=== PATIENT | male | born 1940 | race African-American/Black ===

== ENCOUNTER 2022-03-19 03:23 | Observation (INO) ==
[2022-03-19] MEDS ORDERED: SODIUM CHLORIDE 0.9% 1,000 ML IV STA (03:44)
[2022-03-19 04:20] LABS: Basophils % 0.4 % (0.0-0.8); Eosinophils # 0.2 10*3/uL (0.0-0.87); Eosinophils % 2.5 % (0.00-10.9); Hematocrit 34.9 VOL% (42.0-52.0); Hemoglobin 11.3 GM/DL (14.0-18.0); Immature Granulocytes % 0.6 %; Immature Granulocytes Absolute 0.04 #; Lymphocytes # 1.9 10*3/uL (1.4-4.0); Mean Corpuscular HGB Conc 32.4 GM/DL (32-36); Mean Corpuscular Volume 69.9 FL (87-102); Mean Platelet Volume 11.2 FL (9.6-12.0); Monocytes # 0.5 10*3/uL (0.11-0.8); Monocytes % 7.8 % (1.7-12.7); Neutrophils % 60.7 % (38.7-73.9); Platelet Count 177 T/CUMM (130-400); Red Blood Count 4.99 MC/CUMM (3.8-5.5); Red Cell Distribution Width 17.6 % (9.3-17.3); White Blood Count 6.7 T/CUMM (4-12)
[2022-03-19 04:38] LABS: INR 1.1; PT Patient Result 12.1 SECS (10.1-12.1); Partial Thromboplastin Time 25.8 SECS (23.7-32.9)
[2022-03-19 04:46] LABS: Platelet Estimate Adequate
[2022-03-19 04:48] LABS: Alanine Aminotransferase < 9 U/L (16-61); Albumin 3.4 G/DL (3.4-5.0); Alkaline Phosphatase 47 U/L (45-117); Aspartate Amino Transferase 7 U/L (0-37); Bilirubin,Total < 0.39 MG/DL (0.20-1.00); Blood Urea Nitrogen 21 MG/DL (7-18); Calcium 9.3 MG/DL (8.5-10.1); Carbon Dioxide 23 MMOL/L (21-32); Chloride 112 MMOL/L (98-107); Glucose 109 MG/DL (74-106); Osmolality,Calculated 286.1 MOS/KG (273-304); Potassium 3.7 MMOL/L (3.5-5.1); Sodium 142 MMOL/L (136-145); Total Protein 6.4 G/DL (6.4-8.2)
[2022-03-19] MEDS ORDERED: ONDANSETRON 4 MG/2 ML VIAL IV PRN (06:16)
[2022-03-19 06:52] LABS: Risk Ratio 3.06; VLDL Cholesterol 21.2 MG/DL
[2022-03-19] MEDS: INSULIN LISPRO 100 UNIT/ML SUBCUT SCH ×4 (07:30→22:18)
[2022-03-19 07:59] LABS: Hematocrit 32.2 VOL% (42.0-52.0); Hemoglobin 10.1 GM/DL (14.0-18.0)
[2022-03-19] MEDS: GABAPENTIN 300 MG CAPSULE PO SCH ×2 (10:07→21:44)
[2022-03-19] MEDS: PANTOPRAZOLE 40 MG VIAL IV SCH ×2 (10:08→22:28)
[2022-03-19] MEDS: SODIUM CHLORIDE 0.9% 1,000 ML IV SCH (10:11)
[2022-03-19] MEDS: cefTRIAXone 1,000 MG in SODIUM CHLORIDE 0.9% 100 ML IV SCH (10:14)
[2022-03-19] MEDS: metroNIDAZOLE INJ 500 MG/100 ML PREMIX IV SCH ×2 (12:48→19:50)
[2022-03-19] MEDS ORDERED: DEXTROSE 50% 25 GM/50 ML SYRINGE IV ONE ×2 (13:07→13:30)
[2022-03-19] MEDS ORDERED: DEXTROSE 50% 25 GM/50 ML VIAL IV ONE (13:09)
[2022-03-19 14:23] LABS: Basophils % 0.4 % (0.0-0.8); Eosinophils # 0.1 10*3/uL (0.0-0.87); Hemoglobin 8.6 GM/DL (14.0-18.0); Immature Granulocytes % 0.5 %; Immature Granulocytes Absolute 0.03 #; Lymphocytes # 2.1 10*3/uL (1.4-4.0); Lymphocytes % 37.6 % (21.2-54.2); Mean Corpuscular HGB Conc 31.9 GM/DL (32-36); Mean Corpuscular Volume 71.4 FL (87-102); Mean Platelet Volume 11.6 FL (9.6-12.0); Monocytes # 0.4 10*3/uL (0.11-0.8); Monocytes % 6.8 % (1.7-12.7); Neutrophils % 52.7 % (38.7-73.9); Platelet Count 141 T/CUMM (130-400); Red Blood Count 3.78 MC/CUMM (3.8-5.5); Red Cell Distribution Width 18.2 % (9.3-17.3); White Blood Count 5.6 T/CUMM (4-12)
[2022-03-19] MEDS: DEXTROSE 5% NACL 0.45% 1,000 ML IV SCH (14:56)
[2022-03-19] MEDS: amLODIPine 10 MG TABLET PO SCH (21:44)
[2022-03-19] MEDS: SIMVASTATIN 10 MG TABLET PO SCH (21:44)
[2022-03-19] MEDS: rOPINIRole 1 MG TABLET PO SCH (21:44)
[2022-03-20] MEDS: metroNIDAZOLE INJ 500 MG/100 ML PREMIX IV SCH ×3 (01:48→17:20)
[2022-03-20 05:51] LABS: Basophils % 0.4 % (0.0-0.8); Eosinophils # 0.1 10*3/uL (0.0-0.87); Eosinophils % 2.1 % (0.00-10.9); Hematocrit 25.8 VOL% (42.0-52.0); Hemoglobin 8.2 GM/DL (14.0-18.0); Immature Granulocytes % 0.7 %; Immature Granulocytes Absolute 0.04 #; Lymphocytes # 1.3 10*3/uL (1.4-4.0); Lymphocytes % 23.2 % (21.2-54.2); Mean Corpuscular HGB Conc 31.8 GM/DL (32-36); Mean Corpuscular Volume 71.9 FL (87-102); Monocytes # 0.6 10*3/uL (0.11-0.8); Monocytes % 11.2 % (1.7-12.7); Neutrophils % 62.4 % (38.7-73.9); Platelet Count 126 T/CUMM (130-400); Red Blood Count 3.59 MC/CUMM (3.8-5.5); Red Cell Distribution Width 18.5 % (9.3-17.3); White Blood Count 5.7 T/CUMM (4-12)
[2022-03-20] MEDS: SODIUM CHLORIDE 0.9% 1,000 ML IV SCH (06:44)
[2022-03-20] MEDS ORDERED: SODIUM CHLORIDE 0.9% 1,000 ML IV PRN ×2 (08:12→10:36)
[2022-03-20 09:17] LABS: % Iron Saturation 44.4 % (18-50)
[2022-03-20 09:21] LABS: Alanine Aminotransferase < 9 U/L (16-61); Alkaline Phosphatase 38 U/L (45-117); Aspartate Amino Transferase 7 U/L (0-37); Bilirubin,Total < 0.39 MG/DL (0.20-1.00); Blood Urea Nitrogen 24 MG/DL (7-18); Calcium 8.7 MG/DL (8.5-10.1); Carbon Dioxide 25 MMOL/L (21-32); Chloride 113 MMOL/L (98-107); Glucose 119 MG/DL (74-106); Osmolality,Calculated 290.8 MOS/KG (273-304); Potassium 4.1 MMOL/L (3.5-5.1); Sodium 144 MMOL/L (136-145); Total Protein 5.6 G/DL (6.4-8.2)
[2022-03-20] MEDS: INSULIN LISPRO 100 UNIT/ML SUBCUT SCH ×4 (11:06→22:41)
[2022-03-20] MEDS: GABAPENTIN 300 MG CAPSULE PO SCH ×2 (11:08→22:42)
[2022-03-20] MEDS: PANTOPRAZOLE 40 MG VIAL IV SCH ×2 (11:10→21:10)
[2022-03-20] MEDS: DEXTROSE 5% NACL 0.45% 1,000 ML IV SCH ×2 (11:48→17:06)
[2022-03-20] MEDS: cefTRIAXone 1,000 MG in SODIUM CHLORIDE 0.9% 100 ML IV SCH ×2 (11:48→16:50)
[2022-03-20] MEDS ORDERED: ZIPRASIDONE 20 MG/1 ML VIAL IM ONE (17:43)
[2022-03-20 18:44] LABS: Hematocrit 28.5 VOL% (42.0-52.0); Hemoglobin 9.3 GM/DL (14.0-18.0)
[2022-03-20] MEDS: amLODIPine 10 MG TABLET PO SCH (22:42)
[2022-03-20] MEDS: SIMVASTATIN 10 MG TABLET PO SCH (22:42)
[2022-03-20] MEDS: rOPINIRole 1 MG TABLET PO SCH (22:42)
[2022-03-21] MEDS: metroNIDAZOLE INJ 500 MG/100 ML PREMIX IV SCH ×3 (03:12→17:44)
[2022-03-21 05:46] LABS: Basophils # 0.1 10*3/uL (0.0-0.2); Basophils % 0.9 % (0.0-0.8); Eosinophils # 0.3 10*3/uL (0.0-0.87); Eosinophils % 5.7 % (0.00-10.9); Hematocrit 27.2 VOL% (42.0-52.0); Hemoglobin 8.9 GM/DL (14.0-18.0); Immature Granulocytes % 0.7 %; Immature Granulocytes Absolute 0.04 #; Lymphocytes # 1.8 10*3/uL (1.4-4.0); Lymphocytes % 31.9 % (21.2-54.2); Mean Corpuscular HGB Conc 32.7 GM/DL (32-36); Mean Corpuscular Volume 73.7 FL (87-102); Mean Platelet Volume 11.5 FL (9.6-12.0); Monocytes # 0.6 10*3/uL (0.11-0.8); Monocytes % 10.8 % (1.7-12.7); Platelet Count 136 T/CUMM (130-400); Red Blood Count 3.69 MC/CUMM (3.8-5.5); Red Cell Distribution Width 19.3 % (9.3-17.3); White Blood Count 5.5 T/CUMM (4-12)
[2022-03-21 06:02] LABS: Calcium 8.7 MG/DL (8.5-10.1); Osmolality,Calculated 291.6 MOS/KG (273-304); Potassium 3.8 MMOL/L (3.5-5.1)
[2022-03-21 08:10] LABS: Hematocrit 28.3 VOL% (42.0-52.0); Hemoglobin 9.3 GM/DL (14.0-18.0)
[2022-03-21] MEDS: INSULIN LISPRO 100 UNIT/ML SUBCUT SCH ×4 (09:23→22:11)
[2022-03-21] MEDS: LACTATED RINGERS 1,000 ML IV SCH (09:31)
[2022-03-21] MEDS ORDERED: hydrALAZINE 20 MG/1 ML VIAL IV PRN (09:43)
[2022-03-21] MEDS ORDERED: propofoL 200 MG/20 ML VIAL IV ONE (09:48)
[2022-03-21] MEDS ORDERED: LIDOCAINE 2% 5 ML VIAL ONE (09:48)
[2022-03-21] MEDS: GABAPENTIN 300 MG CAPSULE PO SCH ×2 (10:35→21:43)
[2022-03-21] MEDS: BISACODYL 5 MG TABLET PO SCH ×2 (10:35→17:44)
[2022-03-21] MEDS: amLODIPine 10 MG TABLET PO SCH (10:35)
[2022-03-21] MEDS: PANTOPRAZOLE 40 MG VIAL IV SCH ×2 (10:40→21:45)
[2022-03-21] MEDS: cefTRIAXone 1,000 MG in SODIUM CHLORIDE 0.9% 100 ML IV SCH (10:43)
[2022-03-21 16:08] LABS: Hematocrit 31.7 VOL% (42.0-52.0); Hemoglobin 10.1 GM/DL (14.0-18.0)
[2022-03-21] MEDS ORDERED: POLYETHYLENE GLYCOL POWDER 255 GM BOTTLE PO ONE (18:00)
[2022-03-21] MEDS ORDERED: MAGNESIUM HYDROXIDE SUSP 30 ML UDCUP PO ONE (21:00)
[2022-03-21] MEDS: SIMVASTATIN 10 MG TABLET PO SCH (21:43)
[2022-03-21] MEDS: rOPINIRole 1 MG TABLET PO SCH (21:43)
[2022-03-22 00:23] LABS: Hematocrit 28.2 VOL% (42.0-52.0); Hemoglobin 9.3 GM/DL (14.0-18.0)
[2022-03-22] MEDS: BISACODYL 5 MG TABLET PO SCH (02:49)
[2022-03-22] MEDS: metroNIDAZOLE INJ 500 MG/100 ML PREMIX IV SCH ×3 (02:50→22:00)
[2022-03-22 06:58] LABS: Basophils % 0.3 % (0.0-0.8); Eosinophils # 0.3 10*3/uL (0.0-0.87); Eosinophils % 3.6 % (0.00-10.9); Hematocrit 30.2 VOL% (42.0-52.0); Hemoglobin 9.8 GM/DL (14.0-18.0); Immature Granulocytes % 0.4 %; Immature Granulocytes Absolute 0.04 #; Lymphocytes # 3.3 10*3/uL (1.4-4.0); Lymphocytes % 36.3 % (21.2-54.2); Mean Corpuscular HGB Conc 32.5 GM/DL (32-36); Mean Corpuscular Volume 74.6 FL (87-102); Mean Platelet Volume 11.7 FL (9.6-12.0); Monocytes # 0.8 10*3/uL (0.11-0.8); Monocytes % 9.2 % (1.7-12.7); Neutrophils % 50.2 % (38.7-73.9); Platelet Count 169 T/CUMM (130-400); Red Blood Count 4.05 MC/CUMM (3.8-5.5); Red Cell Distribution Width 19.6 % (9.3-17.3)
[2022-03-22 07:15] LABS: Calcium 9.1 MG/DL (8.5-10.1); Osmolality,Calculated 283.1 MOS/KG (273-304); Potassium 3.3 MMOL/L (3.5-5.1)
[2022-03-22] MEDS: INSULIN LISPRO 100 UNIT/ML SUBCUT SCH ×4 (08:12→23:10)
[2022-03-22] MEDS: GABAPENTIN 300 MG CAPSULE PO SCH ×2 (11:09→20:49)
[2022-03-22] MEDS: amLODIPine 10 MG TABLET PO SCH (11:10)
[2022-03-22] MEDS: LACTATED RINGERS 1,000 ML IV SCH ×2 (11:10→11:20)
[2022-03-22] MEDS: DEXTROSE 5% NACL 0.45% 1,000 ML IV SCH (11:10)
[2022-03-22] MEDS: PANTOPRAZOLE 40 MG VIAL IV SCH ×2 (12:24→21:21)
[2022-03-22] MEDS ORDERED: LIDOCAINE 2% 5 ML VIAL ONE (13:53)
[2022-03-22] MEDS ORDERED: propofoL 200 MG/20 ML VIAL IV ONE ×2 (13:53→14:14)
[2022-03-22] MEDS ORDERED: ALUM/MAG/SIMETH/LIDO VISC 1:1 30 ML BOTTLE PO ONE (14:39)
[2022-03-22] MEDS ORDERED: ALUM/MAG/SIMETH/LIDO VISC 1:1 30 ML BOTTLE PO PRN (15:00)
[2022-03-22] MEDS: cefTRIAXone 1,000 MG in SODIUM CHLORIDE 0.9% 100 ML IV SCH (16:10)
[2022-03-22] MEDS: rOPINIRole 1 MG TABLET PO SCH (20:49)
[2022-03-22] MEDS: SIMVASTATIN 10 MG TABLET PO SCH (20:49)
[2022-03-23 05:32] LABS: Basophils % 0.4 % (0.0-0.8); Eosinophils # 0.4 10*3/uL (0.0-0.87); Eosinophils % 7.1 % (0.00-10.9); Hematocrit 26.2 VOL% (42.0-52.0); Hemoglobin 8.5 GM/DL (14.0-18.0); Immature Granulocytes % 0.6 %; Immature Granulocytes Absolute 0.03 #; Lymphocytes # 1.6 10*3/uL (1.4-4.0); Lymphocytes % 31.1 % (21.2-54.2); Mean Corpuscular HGB Conc 32.4 GM/DL (32-36); Mean Corpuscular Volume 74.4 FL (87-102); Mean Platelet Volume 11.9 FL (9.6-12.0); Monocytes # 0.6 10*3/uL (0.11-0.8); Monocytes % 11.7 % (1.7-12.7); Neutrophils % 49.1 % (38.7-73.9); Platelet Count 175 T/CUMM (130-400); Red Blood Count 3.52 MC/CUMM (3.8-5.5); Red Cell Distribution Width 19.5 % (9.3-17.3); White Blood Count 5.2 T/CUMM (4-12)
[2022-03-23 05:53] LABS: Calcium 8.6 MG/DL (8.5-10.1); Osmolality,Calculated 282.8 MOS/KG (273-304); Potassium 3.5 MMOL/L (3.5-5.1)
[2022-03-23 05:59] LABS: Calcium 8.9 MG/DL (8.5-10.1); Osmolality,Calculated 280.1 MOS/KG (273-304); Potassium 3.3 MMOL/L (3.5-5.1)
[2022-03-23] MEDS: metroNIDAZOLE INJ 500 MG/100 ML PREMIX IV SCH ×2 (06:30→15:39)
[2022-03-23] MEDS: INSULIN LISPRO 100 UNIT/ML SUBCUT SCH ×2 (09:14→14:35)
[2022-03-23] MEDS: PANTOPRAZOLE 40 MG VIAL IV SCH (09:18)
[2022-03-23] MEDS: GABAPENTIN 300 MG CAPSULE PO SCH (09:18)
[2022-03-23] MEDS: amLODIPine 10 MG TABLET PO SCH (09:18)
[2022-03-23] MEDS: LACTATED RINGERS 1,000 ML IV SCH ×2 (14:35)
[2022-03-23] MEDS: cefTRIAXone 1,000 MG in SODIUM CHLORIDE 0.9% 100 ML IV SCH (14:42)
[2022-03-23 15:31] VITALS: BP 124/81
== END 2022-03-23 16:50 | disposition home or self-care (01) ==
LOC: EDUNIT# → EDBD → N.EDINP 03:23 → N.ED 03:23 → SUATTDRO 06:15 → N.3E 20:07 → SUATTDRO 03-21 07:51
PROVIDERS: ADMIT Emergency Medicine; ATTEND Internal Medicine Geriatric Medicine